=== PATIENT | male | born 2005 | race Hispanic/Latino ===

== ENCOUNTER 2025-01-06 18:47 | Emergency (ER) | payer OTHER, SELFPAY ==
[2025-01-06 19:13] VITALS: BP 110/66; PULSE 90; RESP 16; TEMP 36.7; O2SAT 99
--- NOTE | 2025-01-06 19:24 | ED_ITS ---
HPI - Skin/Abscess/Foreign Bdy General Chief complaint: Skin/Abscess/Foreign Body Stated complaint: Cyst on inner thigh Time Seen by Provider: 01/06/25 19:20 Source: patient Mode of arrival: ambulatory Limitations: no limitations History of Present Illness HPI narrative: Andre is a 19-year-old male patient presenting to the clinic today with complaints of a cyst on his right inner thigh. He reports he noticed this over the past 4 days. Is gradually gotten bigger. Area is very tender. Has been applying warm compresses to the affected area. He denies any fever or chills. Related Data Allergies Allergy/AdvReac Type Severity Reaction Status Date / Time No Known Allergies Allergy Verified 01/06/25 19:19 Review of Systems Review of Systems: Pertinent positives per HPI. Patient denies any fever, chills, rash, headache, visual changes, dizziness, cough, runny nose, sore throat, shortness of breath, chest pain, palpitations, nausea, vomiting, diarrhea, constipation, abdominal pain, or any urinary issues. PMFSH Comments At the time of my signature, I reviewed and agree with the nursing past medical, surgical, social, and family history. There is no relevant family history pertinent to the patient complaint. Exam Narrative: General: Well-developed, well nourished, in no apparent distress Head: Normocephalic, atraumatic. Cardio: Regular rate and rhythm, s1 and s2 normal, no murmur appreciated. Resp: Clear to auscultation bilaterally, no rhonchi, rales, wheezing or rubs. Integumentary: [place], warm, and dry, red raised abscess to the right inner mid thigh. Tenderness to palpation with mild fluctuance, redness area measuring 11 by 9 cm in abscess was 5 x 5 cm Course Course Emergency Course: Portions of this record may have been created with voice recognition software. Level of Care: Express Care Visit Vital Signs Vital signs: Vital Signs Temperature 36.7 C 01/06/25 19:13 Pulse Rate 90 01/06/25 19:13 Respiratory Rate 16 01/06/25 19:13 Blood Pressure 110/66 01/06/25 19:13 Pulse Oximetry 99 01/06/25 19:13 Oxygen Delivery Room Air 01/06/25 19:13 Temperature 36.7 C 01/06/25 19:13 Pulse Rate 90 01/06/25 19:13 Respiratory Rate 16 01/06/25 19:13 Blood Pressure 110/66 01/06/25 19:13 Pulse Oximetry 99 01/06/25 19:13 Oxygen Delivery Room Air 01/06/25 19:13 Vital signs reviewed Procedures Abscess I/D lower extremity: Date of Incision: 01/06/25 Side (if applicable): right (Medial thigh) Local Anesthetic: lidocaine 1%, with epi and none Amount of anesthesia used (mL): 6 Technique: incised with #11 blade Amount of fluid expressed (mL): 5 Irrigation: Yes Packing used?: plain (Quarter-inch) I&D Results: Pus and Blood Abcess I&D Additional Comments: Verbal consent obtained for incision and drainage. Risk and benefits explained and patient voiced understanding. Area was cleansed with betadine. Area was prepped and draped using sterile technique. 27 gauge needle was then used to instill (6) ml of lidocaine with epi into the wound edges. Patient tolerated well and anesthesia was appropriate. An 11 blade scalpel was then used to make a 0.5cm incision over the abscess. White bloody exudate expressed from cavity. Wound culture obtained and sent to lab. Patient tolerated procedure well. MDM - Skin/Abscess/Foreign Bdy MDM Narrative Medical decision making narrative: At the time of visit patient is resting comfortably on the exam table. Patient appears to be nontoxic. Procedures: Incision and drainage was performed in the clinic today. Labs: Wound culture was sent. Plan: Patient has an infected abscess to the right medial thigh. Incision and drainage was performed in the clinic today. Wound culture was obtained and sent to the lab. Clindamycin prescription was sent to the pharmacy. Supportive measures were discussed with the patient and they voiced understanding discharge instructions and agrees to treatment plan. Return precautions reviewed Differential Diagnosis Differential diagnosis: Likely abscess of skin or subcutaneous tissue, viral exanthem, dermatophytosis, urticaria, herpes zoster, allergic reaction to drug, cellulitis, eczema, insect bites, impetigo and contact dermatitis Discharge Plan Discharge Clinical Impression: Abscess of skin or subcutaneous tissue Qualifiers: Site of cutaneous abscess: extremity Site of cutaneous abscess of extremity: lower extremity Laterality: right Qualified Code(s): L02.415 - Cutaneous abscess of right lower limb Patient Disposition: Home Condition: Stable Instructions: Antibiotic Form, Abscess (ED), Abscess Incision and Drainage (DC) Additional Instructions: Incision and drainage performed in the clinic today. Wound culture was sent to the lab May take Tylenol/Motrin as needed for pain May apply warm compress to affected area to help facilitate any drainage Take clindamycin as prescribed Leave packing in place for 2 days. Follow-up with your primary care doctor in 2 days for wound check Patient Language: Green[place]ic Prescriptions: New clindamycin HCl [Cleocin HCl] 300 mg capsule 300 mg PO TID 10 Days Qty: 30 0RF Follow-up/Referrals: UNKNOWN,DOCTOR [Primary Care Provider] - Time of Disposition: 19:56 Quality NIHSS Nursing Documentation ED NIHSS nursing documentation: reviewed/agree
[2025-01-06] MEDS: LIDO 1%/EPINEPHRINE 1:100,000 20 ML VIAL 10 ML INFILTRATE (19:30)
== END 2025-01-06 20:05 | disposition home or self-care (01) ==
PROVIDERS: Emergency Provider Nurse Practitioner Family
DX: L02.415 Cutaneous abscess of right lower limb (principal)
CPT/HCPCS: 10060; 87070; 87075; 87181; 87205; 99203; G0463; J2004

== ENCOUNTER 2025-01-08 18:58 | Emergency (ER) | payer OTHER, SELFPAY ==
[2025-01-08 19:05] VITALS: BP 119/70; PULSE 79; RESP 14; TEMP 36.6; O2SAT 100
--- NOTE | 2025-01-08 19:05 | ED.SKABFB ---
HPI - Skin/Abscess/Foreign Bdy General Chief complaint: Skin/Abscess/Foreign Body Stated complaint: Skin/Abscess/Foreign Body Time Seen by Provider: 01/08/25 19:05 Source: patient, RN notes reviewed and old records reviewed Mode of arrival: ambulatory Limitations: no limitations History of Present Illness HPI narrative: 19-year-old male returns to the [facility] with worsening pain, redness after having an abscess drained 2 days ago. States that he has been taking the clindamycin and ibuprofen. Comes in to have the packing removed and concern for worsening redness, pain. Treatments prior to arrival: antibiotic Related Data Allergies Allergy/AdvReac Type Severity Reaction Status Date / Time No Known Allergies Allergy Verified 01/08/25 19:11 Review of Systems Review of Systems: All systems reviewed & are unremarkable except as noted in HPI and below Constitutional: Constitutional: Reports no additional constitutional complaints ENT: Reports system reviewed and no additional complaints, except as documented Cardiovascular: Cardiovascular: Reports no additional cardiovascular complaints, Denies chest pain and Denies dyspnea Respiratory: Respiratory: Reports no additional respiratory complaints, Denies chest congestion, Denies cough and Denies dyspnea Musculoskeletal: Musculoskeletal: Reports no additional musculoskeletal complaints Integumentary/Breasts: Skin/Breast: Reports as per HPI and Reports erythema PMFSH Comments At the time of my signature, I reviewed and agree with the nursing past medical, surgical, social, and family history. There is no relevant family history pertinent to the patient complaint. Exam Const: General: cooperative, healthy appearing, comfortable, no acute distress, well developed, alert and well nourished Nutritional Appearance: well nourished Orientation/consciousness: patient oriented x3 Limitations: no limitations HENMT: Head: normal to inspection Eyes: General: appearance normal, both eyes and all related structures Alignment and Position: alignment normal Neck: Neck: normal visual inspection, full ROM, no lymphadenopathy and no meningeal signs Chest: Chest palpation & inspection: normal inspection of the chest Resp: Effort & Inspection: normal respiratory effort and able to speak in complete sentences Cardio: Rate: regular rate Skin: General skin exam: erythema and excoriation Other: Right inner thigh, darkened area with open center, removed packing, discolored area 4 x 2 cm. Indurated/firm area 8 x 8, redness extending 17 x 14 cm, warm to touch Neuro: General: patient oriented x3, gait normal, moves all extremities and no meningeal signs Cognition (Neuro): normal cognition Speech: normal speech Gait exam (Neuro): Normal gait present Extrem: General: normal to inspection, full ROM, capillary refill normal and normal gait Right lower extremity: full ROM and hip/thigh (Inner thigh) Details: tenderness, swelling and warmth Psych: Appearance: grossly normal and well kempt Mental Status: mental status grossly normal Speech and movement: Normal speech and movement present and Clear speech present Affect: normal affect Attitude: cooperative Course Course Emergency Course: Dressing removed from wound, packing removed. Measurements done, increased redness, symptoms despite being on antibiotics. Sending patient for higher level of care Level of Care: Express Care Visit Vital Signs Vital signs: Vital Signs Temperature 97.9 F 01/08/25 19:05 Pulse Rate 79 01/08/25 19:05 Respiratory Rate 14 01/08/25 19:05 Blood Pressure 119/70 01/08/25 19:05 Pulse Oximetry 100 01/08/25 19:05 Oxygen Delivery Room Air 01/08/25 19:05 Temperature 97.9 F 01/08/25 19:05 Pulse Rate 79 01/08/25 19:05 Respiratory Rate 14 01/08/25 19:05 Blood Pressure 119/70 01/08/25 19:05 Pulse Oximetry 100 01/08/25 19:05 Oxygen Delivery Room Air 01/08/25 19:05 Reviewed Transfer Transfered to: [facility] Transportation: Other (POV) Transfer rationale: Patient with history of abscess drainage 2 days ago currently on antibiotic with worsening symptoms,sending for higher level care Accepting physician: Dr. Sands MDM - Skin/Abscess/Foreign Bdy MDM Narrative Medical decision making narrative: Removed bandage, removed packing, redness, discomfort, induration greater than original sending for higher level of care Transfer instructions reviewed patient to go directly to the ER. Do not eat or drink until cleared by your provider All questions have been answered, and the patient deny any further questions. Some parts of this dictation were generated by voice recognition software and may contain typographical and/or grammatical inaccuracies. Differential Diagnosis Differential diagnosis: Likely abscess of skin or subcutaneous tissue and cellulitis Critical Care Time Critical Care Time Critical Care Time: No Discharge Plan Discharge Clinical Impression: Cellulitis, History of drainage of abscess Patient Disposition: Acute Care Hospital Condition: Stable Patient Language: [place] Prescriptions: No Action clindamycin HCl [Cleocin HCl] 300 mg capsule 300 mg PO TID 10 Days Qty: 30 0RF Follow-up/Referrals: PHYSICIAN,[employer]OR [Primary Care Provider] -
== END 2025-01-08 19:33 | disposition short-term general hospital (02) ==
PROVIDERS: Emergency Provider Nurse Practitioner
DX: T81.41XA Infection following a procedure, superficial incisional surgical site, initial encounter (principal); L03.115 Cellulitis of right lower limb; R01.1 Cardiac murmur, unspecified
CPT/HCPCS: 99212; G0463

== ENCOUNTER 2025-01-09 14:15 | Emergency (ER) | payer OTHER, SELFPAY ==
--- NOTE | ~2025-01-09 | US_ITS ---
EXAMINATION: US soft tissue LE RT DATE: 01/09/2025 15:53 INDICATION: Assess for recurrent deep abscess post recent abscess drainage at the medial right thigh. TECHNIQUE: Multiple grayscale and Doppler ultrasound images of the region of concern at the medial ri ght thigh were obtained. COMPARISON: None FINDINGS: There are few tiny echogenic foci and focal mild edema in the subcutaneous tissues at the region of c oncern likely representing the skin wound at the site of abscess drainage. There is a reticulated pat tern of edema in the underlying subcutaneous fat. No evident recurrent abscess or other abnormal mass es. IMPRESSION: 1. No evident recurrent abscess at the region of concern. Reviewed, dictated and finalized at location A.
[2025-01-09 14:16] VITALS: BP 118/79; PULSE 78; RESP 18; TEMP 36.4; O2SAT 100
--- NOTE | 2025-01-09 16:42 | ED.SKABFB ---
HPI - Skin/Abscess/Foreign Bdy General Chief complaint: Skin/Abscess/Foreign Body Stated complaint: Right thigh abscess getting worse Time Seen by Provider: 01/09/25 14:50 History of Present Illness HPI narrative: Patient is a 19-year-old male who presents ER for evaluation of an abscess to his right thigh. First diagnosed with abscess on 01/06/2025. Underwent incision and drainage as well as packing. Started on clindamycin. Followed up at urgent care yesterday and they recommended he come to the ER for further evaluation because he felt like the redness was getting larger as well as induration. Patient decided to come in today. No fevers or chills or sweats. Still has some mild discomfort around the central area where there was drainage. No additional drainage since the initial I&D. No fevers or chills or sweats. Related Data Allergies Allergy/AdvReac Type Severity Reaction Status Date / Time No Known Allergies Allergy Verified 01/08/25 19:11 Review of Systems Constitutional: Constitutional: Reports no additional constitutional complaints Musculoskeletal: Musculoskeletal: Reports no additional musculoskeletal complaints Integumentary/Breasts: Skin/Breast: Reports system reviewed and no additional complaints, except as docu PMFSH Past Medical History Medical History (Updated 01/09/25 @ 16:46 by Luiz Olivas MD) Healthy adult male Exam Narrative: GENERAL: Well-appearing, well-nourished, and in no acute distress. HEAD: Normocephalic, atraumatic. EXTREMITIES: Normal range of motion. No edema. SKIN: Warm, dry. Right thigh in the area of the previously drained abscess there is persistent induration with some discomfort but no fluctuance. No purulence could be expressed from the abscess site. There is not significant warmth nor erythema to the area. NEURO: Alert and oriented x3. PSYCH: Normal mood and affect. Course Course Emergency Course: No residual abscess. No significant cellulitis. Continue clindamycin. Given reassurance. Will prescribe some pain medication as needed. Vital Signs Vital signs: Vital Signs Temperature 97.6 F 01/09/25 14:16 Pulse Rate 78 01/09/25 14:16 Respiratory Rate 18 01/09/25 14:16 Blood Pressure 118/79 01/09/25 14:16 Pulse Oximetry 100 01/09/25 14:16 Oxygen Delivery Room Air 01/09/25 14:16 Temperature 97.6 F 01/09/25 14:16 Pulse Rate 78 01/09/25 14:16 Respiratory Rate 18 01/09/25 14:16 Blood Pressure 118/79 01/09/25 14:16 Pulse Oximetry 100 01/09/25 14:16 Oxygen Delivery Room Air 01/09/25 14:16 Discharge Plan Discharge Clinical Impression: Abscess of skin or subcutaneous tissue Patient Disposition: Home Condition: Stable Instructions: Abscess (ED) Additional Instructions: You have a healing abscess. Continue your clindamycin. Return the ER if you have fever over 100.4? F, you have increased redness and warmth to her leg, or you have additional concerns. Patient Language: [place]ic Prescriptions: New hydrocodone-acetaminophen 5-325 mg tablet 1 tablet PO Q6H PRN (Reason: pain) Qty: 10 0RF No Action clindamycin HCl [Cleocin HCl] 300 mg capsule 300 mg PO TID 10 Days Qty: 30 0RF Follow-up/Referrals: Daren Batres MD [Physician] - 1 Week UNKNOWN,DOCTOR [Primary Care Provider] -
== END 2025-01-09 17:04 | disposition home or self-care (01) ==
PROVIDERS: Emergency Provider Emergency Medicine
DX: L02.415 Cutaneous abscess of right lower limb (principal)
CPT/HCPCS: 76882; 99284